=== PATIENT | male | born 1990 | race Caucasian/White ===

== ENCOUNTER 2018-03-06 11:35 | Emergency (ER) | payer OTHER, SELFPAY ==
[~2018-03-06] VITALS: Ht 170.2 cm; Wt 99.8 kg
[~2018-03-06 11:35] MED LIST: FLOMAX0.4 MG PO; HYDROCODONE-AP1 EAC6 PO; IBUPROFEN 800800 M1 PO; ZOFRAN ODT4 MG PO
[2018-03-06 11:46] LABS: URINE BILIRUBIN NEGATIVE (Negative); URINE BLOOD NEGATIVE (Negative); URINE CLARITY CLEAR; URINE COLOR YELLOW; URINE GLUCOSE-RANDOM NEGATIVE (Negative); URINE KETONES 1+ (Negative); URINE LEUKOCYTES-REFLEX NEGATIVE (Negative); URINE NITRITE-REFLEX NEGATIVE (Negative); URINE PROTEIN NEGATIVE (Negative); URINE UROBILINOGEN 0.2 E.U./dl (0.2-1.0)
[2018-03-06 11:53] LABS: HEMATOCRIT 51.3 % (42.0-52.0); HEMOGLOBIN 17.9 gm/dL (14.0-18.0); MCH 30.3 pg (26.0-34.0); MCHC 34.9 g/dL (28.0-37.0); MPV 6.7 fl. (7.2-11.1); NUCLEATED RBCS 0 /100WBC; PLATELET COUNT* 357 thou/uL (150-400); RBC 5.89 mil/uL (4.50-6.00); RDW-CV 13.6 % (10.5-14.5); WBC 12.5 thou/uL (4.0-11.0)
[2018-03-06 12:00] LABS: CALCIUM 9.6 mg/dL (8.5-10.1); POTASSIUM 3.7 mmol/L (3.5-5.1)
[2018-03-06 12:08] LABS: ALBUMIN 4.6 g/dL (3.4-5.0); TOTAL BILIRUBIN 0.6 mg/dL (<0.1-1.0); TOTAL PROTEIN 8.6 g/dL (6.4-8.2)
[2018-03-06 12:26] LABS: ABSOLUTE BASOPHILS 0.4 thou/uL (0.0-0.2); ABSOLUTE EOSINOPHILS 0.1 thou/uL (0.0-0.7); ABSOLUTE LYMPHOCYTES 1.1 thou/uL (0.8-5.3); ABSOLUTE MONOCYTES 0.1 thou/uL (0.0-1.2); ABSOLUTE NEUTROPHILS 10.8 thou/uL (1.6-8.1); PLATELET ESTIMATE ADEQUATE
[2018-03-06] MEDS ORDERED: CARAFATE 1 GM TA1 G1 PO (15:28)
[2018-03-06] MEDS ORDERED: OMEPRAZOLE 20 M20 MG PO (15:29)
[2018-03-06] MEDS ORDERED: ZOFRAN4 MG PO (15:32)
[2018-03-06 15:42] VITALS: BP 124/71
--- NOTE | 2018-03-06 16:32 | EKG ---
[place] [address] ELECTROCARDIOGRAM REPORT Name: BARRY ALBERTO Room: [facility]#: [id number] Admission: 03/06/18 Attend Phys: Discharge: 03/06/18 Date of : 88 Report #: [id number] THIS REPORT FOR: //name// [facility] ED Test Date: 2018-03-06 Test Time: 12:58:51 Pat Name: BARRY ALBERTO Department: Room: Gender: [employer]: Víctor MATTHEW : 1990 Requested By: Asuncion Murray Order Number: [id number] MD: Barry Scott Measurements Intervals [place] Rate: 88 P: 56 NC: 165 QRS: 14 QRSD: 82 T: -44 QT: 363 QTc: 440 Interpretive Statements Sinus arrhythmia Possible left atrial enlargement Low voltage, precordial leads Borderline T abnormalities, diffuse leads No previous ECG available for comparison Electronically Signed On 03-06-2018 16:32:03 CDT by Barry Scott [email or web address] <ELECTRONICALLY SIGNED> By: Barry Scott MD, [facility] 03/06/18 1632 [id number] Barry Scott MD, FACC /EPI
== END 2018-03-06 15:42 | disposition home or self-care (01) ==
LOC: M.ERS 11:35
PROVIDERS: Nurse Practitioner Family
DX: K29.70 Gastritis, unspecified, without bleeding (principal); K80.20 Calculus of gallbladder without cholecystitis without obstruction